=== PATIENT | female | born 1990 | race Caucasian/White ===

== ENCOUNTER → 2017-10-13 03:15 | Observation (INO) ==
--- NOTE | 2017-10-13 02:03 | OB/GYN Progress Note ---
Date of Encounter: 10/13/17 Time of Encounter: 01:57 - Assessment and Plan (1) Decreased movement Current Visit: Yes Status: Acute Monitoring - Baseline 135 with variability and accels - Category I, NST reactive Pt began to feel movement after being monitoring Reinforce kick counting and discussed the importance of returning to the hospital if she feels decreased movement again Pt can be discharged home I have seen and evaluated this patient and I agree with the outlined plan of care. Qualifiers: Fetus number: single or unspecified fetus Trimester: third trimester Qualified Code(s): O36.8130 - Decreased movements, third trimester, not applicable or unspecified (2) 29 weeks gestation of Current Visit: Yes Status: Acute Subjective - Subjective Principal diagnosis: Decreased Movement Interval history: Ms. Siddiqui is a 27 year old female at 29 weeks gestation presenting to [facility]& [facility] for decreased movement for the past 3 days. She denies LOF, contractions , vaginal bleeding, or vaginal discharge. She reports no complications with this . She receives care at [facility]. Her previous pregnancies were both delivered at term via section. She admits to tobacco use of 1 /4-1/2 PPD, but denies other alcohol or drug use. PMH includes HSV, but she reports no recent outbreaks. She denies fevers, chills, headaches, blurry vision , chest pain, dyspnea, abdominal pain, dysuria, or edema. Antepartum ROS: no loss of fluid, no vaginal bleeding, no movement normal , no contractions Objective - Exam FHR: auscultation normal, category 1 FHR comments: Baseline 130 with variability and accels Auscultation: bilateral: normal Abdomen: Present: normal appearance, soft, gravid Uterus: Present: normal, firm
[2017-10-13 03:16] LABS: Amphetamine Screen,Urine Negative ng/mL (Cutoff=1000); Barbiturate Screen,Urine Negative ng/mL (Cutoff=200); Benzodiazepines Screen,Urine Negative ng/mL (Cutoff=200); Cannabinoid Screen,Urine Negative ng/mL (Cutoff = 50); Cocaine Screen,Urine Negative ng/mL (Cutoff= 300); Opiate Screen,Urine Negative ng/mL (Cutoff=300); Phencyclidine Screen,Urine Negative ng/mL (Cutoff=25)
== END | disposition home or self-care (01) ==
LOC: 1NENULAB
PROVIDERS: ADMIT Student in an Organized Health Care Education/Training Program; ATTEND Student in an Organized Health Care Education/Training Program